=== PATIENT | male | born 1985 | race Asian ===

== ENCOUNTER 2022-05-23 04:39 | Emergency (ER) | payer SELFPAY ==
[~2022-05-23] VITALS: Ht 165.1 cm; Wt 74.8 kg
[2022-05-23 05:00] VITALS: BP_SYST 165
--- NOTE | 2022-05-23 05:00 | NUR ---
Pt report received. Pt c/o anxiety and insomnia r/t snorting cocaine on New Year's morning. Pt denies c/o C/P or SOB.
--- NOTE | 2022-05-23 05:00 | NUR ---
Patient ambulatory to bed 4 for evaluation and treatment. Patient hooked to monitor
--- NOTE | 2022-05-23 05:15 | NUR ---
Dr. Kerr assessing pt.
[2022-05-23] MEDS ORDERED: LORazepam 2 MG/ML VIAL IVP ONE (05:30)
[2022-05-23] MEDS ORDERED: NACL 0.9% 1,000 ML IV ONE (05:30)
--- NOTE | 2022-05-23 05:50 | NUR ---
# 18 gauge angiocath placed to LAC. Use of asceptic technique. Opsite placed over site. Blood return noted. Blood for lab drawn from site. Flushed with 10 cc of normal saline. No evidence of infiltration noted. Patient tolerated well.
[2022-05-23 06:17] LABS: BASOPHILS % (AUTO) 0.3 % (0.0-2.0); EOSINOPHILS # (AUTO) 0.1 K/uL (0.0-0.4); EOSINOPHILS % (AUTO) 0.8 % (0.0-4.0); HEMATOCRIT 46.2 % (36-54); HEMOGLOBIN 15.8 g/dL (14.0-18.0); LYMPHOCYTES # (AUTO) 1.8 K/uL (1.0-5.5); LYMPHOCYTES % (AUTO) 16.3 % (20.5-51.5); MEAN CORPUSCULAR HEMOGLOBIN 32 pg (27-31); MEAN CORPUSCULAR HGB CONC 34 % (32-36); MEAN CORPUSCULAR VOLUME 92 fL (79.0-98.0); MONOCYTES # (AUTO) 1.1 K/uL (0.0-1.0); NEUTROPHILS # (AUTO) 8.2 K/uL (1.8-7.7); NEUTROPHILS % (AUTO) 72.6 % (40.0-70.0); PLATELET COUNT (AUTO) 314 K/uL (130-430); RED BLOOD CELL COUNT(AUTO) 5.03 MIL/uL (4.2-6.2); RED CELL DISTRIBUTION WIDTH 13.7 % (9.0-15.0); WHITE BLOOD COUNT (AUTO) 11.3 K/uL (4.8-10.8)
--- NOTE | 2022-05-23 06:30 | NUR ---
Pt resting quietly, even and non-labored respirations, NAD.
[2022-05-23 06:38] LABS: ANION GAP 14 (5-15); CALCIUM 9.1 mg/dL (8.4-11.0); CHLORIDE 100 mmol/L (98-107); CREATININE 0.85 mg/dL (0.55-1.30); GFR AFRICAN AMERICAN 132 mL/min (>90); GLUCOSE 99 mg/dL (70-99); UREA NITROGEN, BLOOD 10 mg/dL (8-21)
[2022-05-23 07:06] LABS: ALANINE AMINOTRANSFERASE 53 U/L (12-78); ALBUMIN 4.4 g/dL (3.4-4.8); ASPARTATE AMINOTRANSFERASE 32 U/L (10-37); TOTAL BILIRUBIN 0.9 mg/dL (0.0-1.0)
[2022-05-23] MEDS ORDERED: LORA-259 PO (07:23)
--- NOTE | 2022-05-23 07:33 | NUR ---
[place] of care received, pt resting at this time, VSS, respirations even and unlabored, will cont to monitor.
--- NOTE | 2022-05-23 07:33 | NUR ---
Pt resting quietly, NAD. Report given to EVELYN Latif.
--- NOTE | 2022-05-23 09:27 | NUR ---
Pt d/c, awaiting for a ride.
[2022-05-23 12:26] VITALS: BP_SYST 148
--- NOTE | 2022-05-23 12:27 | NUR ---
Patient given written and verbal discharge instructions and verbalizes understanding. ER MD discussed with patient the results and treatment provided. Patient in stable condition. ID arm band removed. Rx of Ativan given. Patient educated on pain management and to follow up with PMD. Pain Scale 0/10 Opportunity for questions provided and answered. Medication side effect fact sheet provided.
== END 2022-05-23 12:26 | disposition home or self-care (01) ==
LOC: SED 04:39
DX: F14.129 Cocaine abuse with intoxication, unspecified (principal); F19.10 Other psychoactive substance abuse, uncomplicated; F41.9 Anxiety disorder, unspecified; G47.00 Insomnia, unspecified; R20.2 Paresthesia of skin; F17.210 Nicotine dependence, cigarettes, uncomplicated; Z79.899 Other long term (current) drug therapy
CPT/HCPCS: 99284; 96374; 71045; 80053; 85025; 84484; 36415; J2060